=== PATIENT | male | born 1945 | race Asian ===

== ENCOUNTER 2019-12-11 09:44 | Observation (INO) | payer MEDICARE ==
[~2019-12-11] VITALS: Ht 170.2 cm; Wt 83.5 kg
[~2019-12-11 09:44] MED LIST: AMLO-150 PO; HYDR-3240 PO; LOSA100T14 PO; METO-93 PO; TAMS0.4C2 PO
--- NOTE | 2019-12-11 10:03 | NUR ---
pt ambulated to room from triage with a steady gait. pt is a 74 yr old male who states for the last 2 days he has had intermitent substernal cheat pressure. unable to identify and aggrevating factors but did state he did find relief from a bowel movement. pt has hx of htn and hlpd. pt placed on cardiac, nibp, and o2 monitoring. provider in room now.
[2019-12-11] MEDS ORDERED: MAALOX/HYOSCYAMINE/LIDOCAINE 45 ML BTL ONE (10:13)
--- NOTE | 2019-12-11 10:18 | NUR ---
pt medicated per order. vss call light in reach. friend at bedside.
[2019-12-11] MEDS ORDERED: MAALOX/HYOSCYAMINE/LIDOCAINE 45 ML BTL PO ONE (10:30)
[2019-12-11 10:44] LABS: BASOPHILS # (AUTO) 0.02 x10^3/uL (0-0.1); BASOPHILS % (AUTO) 0 % (0-1); EOSINOPHILS # (AUTO) 0.03 x10^3/uL (0-0.4); EOSINOPHILS % (AUTO) 1 % (1-7); LYMPHOCYTES # (AUTO) 1.12 x10^3/uL (1-3.4); LYMPHOCYTES % (AUTO) 21 % (22-44); MD NO; MEAN CORPUSCULAR HEMOGLOBIN 28.5 pg (27.5-34.5); MEAN CORPUSCULAR HGB CONC 32.8 g/dL (33.2-36.2); MEAN PLATELET VOLUME 7.7 fL (7.4-10.4); MONOCYTES # (AUTO) 0.37 x10^3/uL (0.2-0.8); MONOCYTES % (AUTO) 7 % (2-9); NEUTROPHILS # (AUTO) 3.89 x10^3/uL (1.8-6.8); NEUTROPHILS % (AUTO) 72 % (42-75); PLATELET COUNT 215 x10^3/uL (130-400); RED BLOOD COUNT 5.81 x10^6/uL (4.38-5.82); RED CELL DISTRIBUTION WIDTH 14.7 % (9.4-14.8)
[2019-12-11 10:56] LABS: ALANINE AMINOTRANSFERASE 29 U/L (12-78); ALBUMIN 3.7 g/dL (3.4-5.0); ANION GAP 5 mmol/L (5-15); CALCIUM 9.2 mg/dL (8.5-10.1); CHLORIDE 109 mmol/L (98-107); CREATININE 1.07 mg/dL (0.7-1.3)
[2019-12-11 11:01] LABS: ALKALINE PHOSPHATASE 59 U/L (45-117); BILIRUBIN,TOTAL 1.3 mg/dL (0.2-1.0); TOTAL PROTEIN 7.2 g/dL (6.4-8.2); TROPONIN I 0.016 ng/mL (0.000-0.045)
--- NOTE | 2019-12-11 11:17 | NUR ---
pt resting comfortably. nadn. pt states he feels better but unclear if it is due to medication
--- NOTE | 2019-12-11 11:52 | NUR ---
PROVIDER IN ROOM TO DISCUSS ADMISSION. PT AGREES WITH POC. LABS AND IMAGING REVIEWED WITH PT. NO OTHER QUESTIONS AT THIS TIME. TECH IN ROOM TO START IV
--- NOTE | 2019-12-11 12:12 | NUR ---
ATTEMPT TO CALL REPORT. ASKED BY RN TO CALL BACK.
[2019-12-11] MEDS ORDERED: SODIUM CHLORIDE 0.9% 1,000 ML IV SCH (13:31)
[2019-12-11 13:36] VITALS: BP 148/85
[2019-12-11] MEDS ORDERED: morphine SULFATE 10 MG/ML, 1ML IVPush PRN (14:00)
[2019-12-11] MEDS ORDERED: ENOXAPARIN 40 MG/0.4 ML SQ SCH (14:00)
[2019-12-11] MEDS ORDERED: ONDANSETRON 2MG/ML, 2ML IVPush PRN (14:00)
[2019-12-11] MEDS ORDERED: ASPIRIN 81 MG TABLET CHEW PO ONE (14:00)
[2019-12-11] MEDS ORDERED: ACETAMINOPHEN 325 MG TABLET PO PRN (14:00)
[2019-12-11] MEDS ORDERED: LABETALOL 5MG/ML, 20ML IVPush PRN (14:00)
[2019-12-11] MEDS ORDERED: hydrALAzine 20 MG/ML, 1ML IVPush PRN (14:00)
[2019-12-11 15:54] LABS: TROPONIN I < 0.015 ng/mL (0.000-0.045)
[2019-12-11] MEDS: PANTOPRAZOLE 20MG TABLET PO SCH (16:19)
[2019-12-11 19:14] VITALS: BP 166/99
[2019-12-11] MEDS ORDERED: ATORVASTATIN 40 MG TABLET PO SCH (21:00)
[2019-12-11 21:02] VITALS: BP 154/88
[2019-12-11 21:26] LABS: TROPONIN I < 0.015 ng/mL (0.000-0.045)
[2019-12-12 00:44] VITALS: BP 157/79
[2019-12-12 03:29] LABS: BASOPHILS # (AUTO) 0.03 x10^3/uL (0-0.1); BASOPHILS % (AUTO) 1 % (0-1); EOSINOPHILS # (AUTO) 0.08 x10^3/uL (0-0.4); EOSINOPHILS % (AUTO) 1 % (1-7); LYMPHOCYTES # (AUTO) 1.54 x10^3/uL (1-3.4); LYMPHOCYTES % (AUTO) 28 % (22-44); MD NO; MEAN CORPUSCULAR HEMOGLOBIN 28.8 pg (27.5-34.5); MEAN CORPUSCULAR HGB CONC 33.1 g/dL (33.2-36.2); MEAN PLATELET VOLUME 7.7 fL (7.4-10.4); MONOCYTES # (AUTO) 0.39 x10^3/uL (0.2-0.8); MONOCYTES % (AUTO) 7 % (2-9); NEUTROPHILS # (AUTO) 3.51 x10^3/uL (1.8-6.8); NEUTROPHILS % (AUTO) 63 % (42-75); PLATELET COUNT 187 x10^3/uL (130-400); RED BLOOD COUNT 5.67 x10^6/uL (4.38-5.82); RED CELL DISTRIBUTION WIDTH 14.7 % (9.4-14.8)
[2019-12-12 03:41] LABS: ALBUMIN 3.4 g/dL (3.4-5.0); ANION GAP 3 mmol/L (5-15); CALCIUM 8.6 mg/dL (8.5-10.1); CHLORIDE 110 mmol/L (98-107)
[2019-12-12 03:46] LABS: ALANINE AMINOTRANSFERASE 30 U/L (12-78); ALKALINE PHOSPHATASE 57 U/L (45-117); BILIRUBIN,TOTAL 1.5 mg/dL (0.2-1.0); CHOL/HDL RATIO 2.4; CHOLESTEROL, TOTAL 119 mg/dL (140-239); CREATININE 1.02 mg/dL (0.7-1.3); HDL CHOL % 41 % (26-37); HDL CHOLESTEROL (DIRECT) 49 mg/dL (40-60); LDL CHOLESTEROL,CALCULATED 47 mg/dL (54-169); TOTAL PROTEIN 6.7 g/dL (6.4-8.2); TRIGLYCERIDES 114 mg/dL (50-200); TROPONIN I < 0.015 ng/mL (0.000-0.045); VLDL CHOLESTEROL 23 mg/dL (0-25)
[2019-12-12] MEDS: PANTOPRAZOLE 20MG TABLET PO SCH (06:29)
[2019-12-12 07:15] VITALS: BP 125/72
[2019-12-12] MEDS ORDERED: ASPIRIN 81 MG TABLET CHEW PO SCH (09:00)
[2019-12-12] MEDS ORDERED: METOPROLOL SUCCINATE 50 MG TAB.ER.24H PO SCH (09:00)
[2019-12-12] MEDS ORDERED: AMLODIPINE 5 MG TABLET PO SCH ×2 (09:00)
[2019-12-12] MEDS ORDERED: TAMSULOSIN 0.4 MG CAP.ER.24H PO SCH (09:00)
[2019-12-12] MEDS ORDERED: METOPROLOL SUCCINATE 25 MG TAB.ER.24H PO SCH (09:00)
[2019-12-12] MEDS ORDERED: LOSARTAN 100 MG TAB PO SCH (09:00)
[2019-12-12] MEDS ORDERED: REGADENOSON 0.4 MG/5 ML SYRINGE ONE (09:13)
[2019-12-12] MEDS ORDERED: AMLODIPINE 5 MG TABLET PO ONE (09:30)
[2019-12-12] MEDS ORDERED: PANT20TA4 PO (12:20)
[2019-12-12] MEDS ORDERED: METO25TA91 PO (12:20)
[2019-12-12] MEDS ORDERED: AMLO10TA8 PO (12:20)
[2019-12-12] MEDS ORDERED: ASPI-515 PO (12:20)
[2019-12-13] MEDS ORDERED: AMLODIPINE 10 MG TAB PO SCH (09:00)
== END 2019-12-12 13:30 | disposition home or self-care (01) ==
LOC: ED 12:02 → EDIP 12:10 → INTOOBSV 12:10 → 5SO 13:06 → DCLOUNGE 12-12 13:30
PROVIDERS: ADMIT Internal Medicine; ATTEND Internal Medicine
DX: R07.89 Other chest pain (principal); I10 Essential (primary) hypertension; R42 Dizziness and giddiness; E78.5 Hyperlipidemia, unspecified; E78.00 Pure hypercholesterolemia, unspecified; R00.1 Bradycardia, unspecified; Z87.891 Personal history of nicotine dependence; Z85.46 Personal history of malignant neoplasm of prostate; Z79.82 Long term (current) use of aspirin; Z79.899 Other long term (current) drug therapy
CPT/HCPCS: 36415; 71045; 78452; 80053; 80061; 84484; 85025; 85379; 93005; 93017; 96360; 96361; 96372; 99285; A9502; C9898; G0378; J1650; J2785; J7030

== ENCOUNTER 2020-08-31 02:10 | Emergency (ER) | payer MEDICARE ==
[~2020-08-31] VITALS: Ht 170.2 cm; Wt 97.3 kg
[~2020-08-31 02:10] MED LIST changes: +AMLO-211 PO; +ASPI-963 PO; +HYDR-1067 PO; -HYDR-3240 PO; +METO25TA91 PO; +PANT20TA4 PO
--- NOTE | 2020-08-31 02:32 | NUR ---
pt with family member in room, on monitoring specialist with bed rails up bilaterally and call light within reach. md at bedside to assess. pt states he had an episode of ringing in his ears 2 days ago, tonight noted onset of dizziness, generalized weakness, and bp of 180/100 at 0100. pt reports taking metoprolol 50mg po at that time. pt awake and alert, denies pain continues to complain of dizziness, moving all extremities equally.
[2020-08-31 02:52] LABS: BASOPHILS % (AUTO) 1 % (0-1); EOSINOPHILS % (AUTO) 3 % (1-7); LYMPHOCYTES % (AUTO) 30 % (22-44); MEAN CORPUSCULAR HGB CONC 33.6 g/dL (33.2-36.2); MEAN PLATELET VOLUME 7.8 fL (7.4-10.4); MONOCYTES % (AUTO) 7 % (2-9); NEUTROPHILS % (AUTO) 59 % (42-75); PLATELET COUNT 213 x10^3/uL (130-400); RED BLOOD COUNT 5.38 x10^6/uL (4.38-5.82)
[2020-08-31 02:53] LABS: MD NO
--- NOTE | 2020-08-31 02:56 | NUR ---
REPORT RECIEVED FROM GREY RN
[2020-08-31 03:03] LABS: ALANINE AMINOTRANSFERASE 27 U/L (12-78); ALBUMIN 3.5 g/dL (3.4-5.0); ANION GAP 5 mmol/L (5-15); CALCIUM 8.6 mg/dL (8.5-10.1); CHLORIDE 106 mmol/L (98-107); CREATININE 1.04 mg/dL (0.7-1.3)
[2020-08-31 03:07] LABS: ALKALINE PHOSPHATASE 55 U/L (45-117); BILIRUBIN,TOTAL 0.6 mg/dL (0.2-1.0); TOTAL PROTEIN 7.1 g/dL (6.4-8.2); TROPONIN I 0.016 ng/mL (0.000-0.045)
[2020-08-31 04:19] VITALS: BP 143/89
== END 2020-08-31 04:23 | disposition home or self-care (01) ==
LOC: ED 04:00
DX: R42 Dizziness and giddiness (principal); R53.1 Weakness; I10 Essential (primary) hypertension; E78.00 Pure hypercholesterolemia, unspecified; Z85.46 Personal history of malignant neoplasm of prostate; Z87.891 Personal history of nicotine dependence
CPT/HCPCS: 36415; 80053; 84484; 85025; 93005; 99284